=== PATIENT | female | born 1930 | race Caucasian/White ===

== ENCOUNTER → 2017-08-29 | Outpatient (CLI) | payer MEDICARE, BC ==
[~2017-08-29] MED LIST: AMLODIPINE BESY1 CA6 PO; ASPIRIN81 MG PO; BRILINTA90 M1 PO; DELSYM30 MG/5 ML PO; ENTERIC ASPIRI325 MG PO; HYDROCHLOROTH12.5 M1 PO; LIPITOR20 MG PO; LISINOPRIL 20MG20 MG PO; LOTREL1 CA1 PO; LYRICA25 MG PO; NITROGLYCERIN0.4 MG SL; OMEPRAZOLE20 MG PO; PERCOCET1 TAB PO; SIMVASTATIN40 MG PO; SYMBICORT1 AE1 IH; TYLENOL ES500 M1 PO
--- NOTE | 2017-08-29 13:55 | RADIOLOGY REPORT PS360 ---
CHEST(2 VIEWS-NOT PORTABLE) HISTORY: CHEST TIGHTNESS AND PRESSURE ORDERING PHYSICIAN: MICHELL AHN APRN PATIENT AGE: 87 years COMPARISON: 03/02/2017 FINDINGS: The cardiomediastinal silhouette and pulmonary vascularity are within normal limits. Coronary artery calcifications are present consistent with coronary artery disease. There is COPD with mild fibrotic changes in the left lower lobe and right upper lobe. No lobar consolidation or collapse. No acute bony anomalies. IMPRESSION: 1. No change with no acute finding. 2. COPD with chronic changes. 3. Coronary artery disease
== END ==
LOC: RT 12:08
DX: K44.9 Diaphragmatic hernia without obstruction or gangrene (principal); R07.89 Other chest pain